=== PATIENT | male | born 1975 | race Caucasian/White ===

== ENCOUNTER 2017-01-26 19:05 | Emergency (ER) | payer OTHER ==
[2017-01-26] MEDS ORDERED: SODIUM CHLORIDE 0.9% 1,000 ML IV STA ×2 (20:34)
[2017-01-26] MEDS ORDERED: KETOROLAC 30 MG/ML 1 ML VIAL IVP STA (20:34)
[2017-01-26] MEDS ORDERED: ORPHENADRINE 30 MG/ML 2 ML VIAL IVP STA (20:36)
--- NOTE | 2017-01-26 20:40 | ED ---
Abdominal Pain HPI - General Source: patient, RN notes reviewed Mode of arrival: wheelchair Limitations: no limitations - History of Present Illness MD Complaint: abdominal pain, flank pain <Ryan Lawler - Last Filed: 01/26/17 20:36> <Ryan Leong - Last Filed: 01/26/17 22:34> - General Chief Complaint: Abdominal Pain Stated Complaint: anxiety Time Seen by Provider: 01/26/17 20:25 - History of Present Illness Initial Comments: This is a 42-year-old male with a history of a prior back injury about 20 years ago who states for the past 2 weeks is had intermittent episodes of left-sided flank pain it is now getting more severe is burning and sharp radiating around into his left flank and into his left lower quadrant abdominal area. He states it does increase somewhat with movement he thinks it is likely his low back he denies any urinary or fecal incontinence or loss of function to his lower extremities. He has tried home medications without relief. He denies any hematuria he has no history kidney stones. Denies any fevers chills sweats nausea vomiting states the pain is 11/10 severity. He states he injury occurred after lifting a box and twisting. He is concerned however because this is not typical of his low back pain with radiation. (Ryan Lawler) - Related Data Home Medications Medication Instructions Recorded Confirmed ALPRAZolam [Xanax] 1 mg PO QID PRN 01/26/17 01/26/17 Atorvastatin [Lipitor] 10 mg PO HS 01/26/17 01/26/17 Cholecalciferol [Vitamin D3] 5,000 unit PO DAILY 01/26/17 01/26/17 Desvenlafaxine Succinate [Pristiq] 50 mg PO DAILY 01/26/17 01/26/17 Gabapentin 1,200 mg PO TID 01/26/17 01/26/17 Ibuprofen [Motrin] 800 mg PO Q6H PRN 01/26/17 01/26/17 Lisinopril [Prinivil] 5 mg PO DAILY 01/26/17 01/26/17 Mirtazapine [Remeron] 15 mg PO HS 01/26/17 01/26/17 SUMAtriptan SUCCINATE [Imitrex] 50 mg PO BID PRN 01/26/17 01/26/17 Topiramate [Topamax] 25 mg PO DAILY 01/26/17 01/26/17 Previous Rx's Medication Instructions Recorded HYDROcodone/APAP 5-325MG [De Young 1 tab PO Q6HR PRN #12 tab 01/26/17 5-325] Ibuprofen [Motrin] 600 mg PO Q8HR PRN #24 tab 01/26/17 Allergies Allergy/AdvReac Type Severity Reaction Status Date / Time No Known Allergies Allergy Verified 01/26/17 20:41 Review of Systems ROS Other: All systems not noted in ROS Statement are negative. <Ryan Lawler - Last Filed: 01/26/17 20:36> ROS Other: All systems not noted in ROS Statement are negative. <Ryan Leong - Last Filed: 01/26/17 22:34> ROS Statement: Those systems with pertinent positive or pertinent negative responses have been documented in the HPI. Past Medical History Past Medical History: No Reported History History of Any Multi-Drug Resistant Organisms: None Reported Past Surgical History: No Surgical Hx Reported Past Psychological History: Anxiety Smoking Status: Current every day smoker Past Alcohol Use History: None Reported Past Drug Use History: None Reported <Ryan Lawler - Last Filed: 01/26/17 20:36> General Exam Limitations: no limitations General appearance: alert, anxious, in distress Head exam: Present: atraumatic, normocephalic, normal inspection Eye exam: Present: normal appearance, PERRL, EOMI. Absent: scleral icterus, conjunctival injection, periorbital swelling ENT exam: Present: normal exam, mucous membranes moist Neck exam: Present: normal inspection. Absent: tenderness, meningismus, lymphadenopathy Respiratory exam: Present: normal lung sounds bilaterally. Absent: respiratory distress, wheezes, rales, rhonchi, stridor Cardiovascular Exam: Present: regular rate, normal rhythm, normal heart sounds. Absent: systolic murmur, diastolic murmur, rubs, gallop, clicks GI/Abdominal exam: Present: soft, tenderness (Some left lower quadrant tenderness palpation no definite guarding or rebound. No masses no bruits no hernias), normal bowel sounds. Absent: distended, guarding, rebound, rigid Rectal exam: Present: deferred exam: Present: normal inspection Extremities exam: Present: normal inspection, full ROM, tenderness (Tenderness palpation over the left gluteus.), normal capillary refill. Absent: pedal edema , joint swelling, calf tenderness Back exam: Present: normal inspection, tenderness, paraspinal tenderness (Some mild paraspinous muscle tenderness at the lower thoracic and lumbar spine region no spinous process tenderness no step-off or crepitation). Absent: CVA tenderness (R), CVA tenderness (L), muscle spasm, rash noted Neurological exam: Present: alert, oriented X3, CN II-XII intact Psychiatric exam: Present: normal affect, normal mood Skin exam: Present: warm, dry, intact, normal color. Absent: rash <Ryan Lawler - Last Filed: 01/26/17 20:36> <Ryan Leong - Last Filed: 01/26/17 22:34> - General Exam Comments Initial Comments: This is a well-developed well-nourished awake alert oriented 3 male (Ryan Lawler) Course <Ryan Lawler - Last Filed: 01/26/17 20:36> <Ryan Leong - Last Filed: 01/26/17 22:34> Vital Signs 01/26/17 01/26/17 01/26/17 19:22 21:01 22:25 Temperature 99 F 98.9 F 97.7 F Pulse Rate 87 81 68 Respiratory 20 18 18 Rate Blood Pressure 135/84 127/76 112/74 O2 Sat by Pulse 98 97 97 Oximetry - Reevaluation(s) Reevaluation #1: 01/26/17 20:39 Patient will be endorsed to Dr. Leong who will make the final disposition. ( Ryan Lawler) Medical Decision Making <Ryan Lawler - Last Filed: 01/26/17 20:36> - Lab Data Result diagrams: 01/26/17 20:50 01/26/17 20:50 <Ryan Leong - Last Filed: 01/26/17 22:34> - Medical Decision Making Patient was signed out awaiting laboratory studies and CT of the abdomen and pelvis. Laboratory studies are unremarkable. CT shows no kidney stones, bony structures are intact. Patient denies weakness, reflexes are 2+ at the patella. He denies any bowel or bladder incontinence. His pain is primarily left lumbar paraspinal. No midline tenderness. No alarming features on history or physical exam. Patient is given Norflex, Toradol, and morphine. He is feeling somewhat better. He is able to emergency department. He will follow -up with his primary care physician. Diagnosis: acute lumbar strain (Ryan Leong) - Lab Data Lab Results 01/26/17 01/26/17 01/26/17 Range/Units 20:50 20:50 20:50 WBC 6.0 (3.8-10.6) k/uL RBC 4.44 (4.30-5.90) m/uL Hgb 14.7 (13.0-17.5) gm/dL Hct 44.5 (39.0-53.0) % MCV 100.3 H (80.0-100.0) fL MCH 33.1 (25.0-35.0) pg MCHC 33.0 (31.0-37.0) g/dL RDW 12.4 (11.5-15.5) % Plt Count 184 (150-450) k/uL Neutrophils % 48 % Lymphocytes % 36 % Monocytes % 8 % Eosinophils % 3 % Basophils % 1 % Neutrophils # 2.9 (1.3-7.7) k/uL Lymphocytes # 2.2 (1.0-4.8) k/uL Monocytes # 0.5 (0-1.0) k/uL Eosinophils # 0.2 (0-0.7) k/uL Basophils # 0.1 (0-0.2) k/uL Sodium 144 (137-145) mmol/L Potassium 3.8 (3.5-5.1) mmol/L Chloride 116 H (98-107) mmol/L Carbon Dioxide 18 L (22-30) mmol/L Anion Gap 10 mmol/L BUN 11 (9-20) mg/dL Creatinine 1.04 (0.66-1.25) mg/dL Est GFR (MDRD) Af Amer >60 (>60 ml/min/1.73 sqM) Est GFR (MDRD) Non-Af >60 (>60 ml/min/1.73 sqM) Glucose 71 L (74-99) mg/dL Calcium 8.6 (8.4-10.2) mg/dL Magnesium 1.9 (1.6-2.3) mg/dL Total Bilirubin 0.3 (0.2-1.3) mg/dL AST 23 (17-59) U/L ALT 43 (21-72) U/L Alkaline Phosphatase 78 (38-126) U/L Total Protein 6.2 L (6.3-8.2) g/dL Albumin 3.8 (3.5-5.0) g/dL Amylase <30 L (30-110) U/L Lipase 38 (23-300) U/L Urine Color Light Yellow Urine Appearance Clear (Clear) Urine pH 6.0 (5.0-8.0) Ur Specific Wrights 1.008 (1.001-1.035) Urine Protein Negative (Negative) Urine Glucose (UA) Negative (Negative) Urine Ketones Negative (Negative) Urine Blood Negative (Negative) Urine Nitrite Negative (Negative) Urine Bilirubin Negative (Negative) Urine Urobilinogen <2.0 (<2.0) mg/dL Ur Leukocyte Esterase Negative (Negative) Disposition <Ryan Lawler - Last Filed: 01/26/17 20:36> <Ryan Leong - Last Filed: 01/26/17 22:34> Clinical Impression: Abdominal pain, Lumbar back sprain Disposition: HOME SELF-CARE Condition: Good Instructions: Low Back Strain (ED) Prescriptions: HYDROcodone/APAP 5-325MG [De Young 5-325] 1 tab PO Q6HR PRN #12 tab PRN Reason: Pain Ibuprofen [Motrin] 600 mg PO Q8HR PRN #24 tab PRN Reason: Pain Referrals: Nonstaff,Physician [Primary Care Provider] - 1-2 days
[2017-01-26 21:07] LABS: Basophils # (A) 0.1 k/uL (0-0.2); Basophils % (A) 1 %; CH 33.2; CHCM 33.2; Eosinophils # (A) 0.2 k/uL (0-0.7); Eosinophils % (A) 3 %; HCT 44.5 % (39.0-53.0); HDW 2.35; HGB 14.7 gm/dL (13.0-17.5); Luc # (Auto) 0.24; Luc % (Auto) 4; Lymphocytes # (A) 2.2 k/uL (1.0-4.8); Lymphocytes % (A) 36 %; MCH 33.1 pg (25.0-35.0); MCV 100.3 fL (80.0-100.0); Mean Platelet Volume 8.4; Monocytes # (A) 0.5 k/uL (0-1.0); Monocytes % (A) 8 %; Neutrophils # (A) 2.9 k/uL (1.3-7.7); Neutrophils % (A) 48 %; RBC 4.44 m/uL (4.30-5.90); RDW 12.4 % (11.5-15.5); WBC (Perox) 6.21
[2017-01-26 21:09] LABS: Appearance,Urine Clear (Clear); Bilirubin,Urine Negative (Negative); Glucose,Urine (UA) Negative (Negative); Ketones,Urine Negative (Negative); Leukocyte Esterase,Urine Negative (Negative); Nitrite,Urine Negative (Negative); Protein,Urine Negative (Negative); Specific Gravity,Urine 1.008 (1.001-1.035); UA Billing (MACRO vs. MICRO) CHEM; Urobilinogen,Urine <2.0 mg/dL (<2.0)
[2017-01-26 21:11] VITALS: RESP 18
[2017-01-26 21:30] LABS: ALT 43 U/L (21-72); AST 23 U/L (17-59); Alkaline Phosphatase 78 U/L (38-126); Amylase <30 U/L (30-110); Anion Gap 10 mmol/L; Blood Urea Nitrogen 11 mg/dL (9-20); Calcium 8.6 mg/dL (8.4-10.2); Carbon Dioxide 18 mmol/L (22-30); Chloride 116 mmol/L (98-107); Glucose 71 mg/dL (74-99); Magnesium 1.9 mg/dL (1.6-2.3); Non-African American GFR(MDRD) >60 (>60 ml/min/1.73 sqM); Potassium 3.8 mmol/L (3.5-5.1); Sodium 144 mmol/L (137-145); Total Bilirubin 0.3 mg/dL (0.2-1.3); Total Protein 6.2 g/dL (6.3-8.2)
--- NOTE | 2017-01-26 21:48 | CT ---
EXAMINATION TYPE: CT abdomen pelvis wo con DATE OF EXAM: 01/26/2017 COMPARISON: NONE HISTORY: Left sided flank and LLQ pain CT DLP: 321 mGycm Automated exposure control for dose reduction was used. TECHNIQUE: Helical acquisition of images was performed from the lung bases through the pelvis. FINDINGS: Lung bases are clear. There is no pleural effusion. Heart size is normal. Liver spleen pancreas gallbladder appear normal. Bile ducts are not dilated. There is no adrenal mass . Kidneys have normal size and contour. There is no hydronephrosis. Ureters are not dilated. There is no retroperitoneal adenopathy. There is no ascites. I see no intestinal wall thickening. There are n o dilated loops. Appendix appears normal. There is no sign of appendicitis. Bladder distends smoothly. There is no pel thea mass. The bony structures are intact. IMPRESSION: NEGATIVE CT SCAN OF THE ABDOMEN AND PELVIS. NO EVIDENCE OF RENAL STONE OR OBSTRUCTION. NORMAL APPENDI X.
[2017-01-26] MEDS ORDERED: MORPHINE SULFATE 4 MG/ML SYRINGE IVP STA (22:29)
[2017-01-26] MEDS ORDERED: DIAZEPAM 5 MG/ML 2 ML SYRINGE IVP STA (22:29)
[2017-01-26 22:52] VITALS: BP 135/85; PULSE 70; TEMP 98.8
== END 2017-01-26 22:52 | disposition home or self-care (01) ==
LOC: EC 19:05
DX: S33.5XXA Sprain of ligaments of lumbar spine, initial encounter (principal); R10.32 Left lower quadrant pain; F17.200 Nicotine dependence, unspecified, uncomplicated; Z79.899 Other long term (current) drug therapy; X50.0XXA Overexertion from strenuous movement or load, initial encounter
CPT/HCPCS: 99284; 96374; 96375 ×2; 96361 ×2; 36415; 80053; 82150; 83690; 83735; 85025; 81003; 74176; J2270; J2360; J1885

== ENCOUNTER 2017-03-18 23:18 | Emergency (ER) | payer OTHER ==
[2017-03-18 23:24] VITALS: BP 135/82; PULSE 94; RESP 16; TEMP 97.1
--- NOTE | 2017-03-19 00:02 | XR ---
EXAMINATION TYPE: XR wrist complete LT DATE OF EXAM: 03/18/2017 COMPARISON: NONE HISTORY: Wrist injury and pain TECHNIQUE: 4 views FINDINGS: There is evidence of old ununited ulnar styloid process fracture. There is some deformity o f the distal radius consistent with an old healed fracture. I see no acute fracture. Carpal bones are intact. IMPRESSION: No acute abnormality of the left wrist. Old healed fractures.
--- NOTE | 2017-03-19 00:08 | ED ---
General Adult HPI - General Chief complaint: Extremity Injury, Upper Stated complaint: Wrist Injury Time Seen by Provider: 03/18/17 23:28 Source: patient, RN notes reviewed Mode of arrival: ambulatory Limitations: no limitations - History of Present Illness Initial comments: 42-year-old male presents to the emergency department with a chief complaint of left wrist pain. He tripped and fell onto his left wrist pain and swelling so he thought that he should be seen. He has a history of fractured left wrist in the past. Patient states that he has range of motion of the fingers he does have pain in the wrist when he moves the hand. No pain to the elbow. It was a simple trip and fall. Patient has no other injuries at this time. He complains of left wrist pain. She denies any head injury.Patient denies any recent fever, chills, shortness of breath, chest pain, back pain, abdominal pain , nausea vomiting, numbness or tingling, dysuria or hematuria, constipation or diarrhea, headaches or visual changes, or any other current symptoms. - Related Data Home Medications Medication Instructions Recorded Confirmed ALPRAZolam [Xanax] 1 mg PO QID PRN 01/26/17 03/18/17 Atorvastatin [Lipitor] 10 mg PO HS 01/26/17 03/18/17 Cholecalciferol [Vitamin D3] 5,000 unit PO DAILY 01/26/17 03/18/17 Desvenlafaxine Succinate [Pristiq] 50 mg PO DAILY 01/26/17 03/18/17 Gabapentin 1,200 mg PO TID 01/26/17 03/18/17 Lisinopril [Prinivil] 5 mg PO HS 01/26/17 03/18/17 Mirtazapine [Remeron] 15 mg PO HS 01/26/17 03/18/17 SUMAtriptan SUCCINATE [Imitrex] 50 mg PO BID PRN 01/26/17 03/18/17 Topiramate [Topamax] 25 mg PO DAILY 01/26/17 03/18/17 Previous Rx's Medication Instructions Recorded Ibuprofen [Motrin] 600 mg PO Q8HR PRN #24 tab 01/26/17 Allergies Allergy/AdvReac Type Severity Reaction Status Date / Time No Known Allergies Allergy Verified 03/18/17 23:29 Review of Systems ROS Statement: Those systems with pertinent positive or pertinent negative responses have been documented in the HPI. ROS Other: All systems not noted in ROS Statement are negative. Past Medical History Past Medical History: No Reported History History of Any Multi-Drug Resistant Organisms: None Reported Past Surgical History: No Surgical Hx Reported Past Psychological History: Anxiety Smoking Status: Current every day smoker Past Alcohol Use History: None Reported Past Drug Use History: None Reported General Exam - General Exam Comments Initial Comments: General: The patient is awake and alert, in no distress, and does not appear acutely ill. Neck: The neck is supple, there is no tenderness. Cardiovascular: There is a regular rate and rhythm. No murmur, rub or gallop is appreciated. Respiratory: Lungs are clear to auscultation, respirations are non-labored, breath sounds are equal. No wheezes, stridor, rales, or rhonchi. Musculoskeletal: Sensation intact with 2+ pulses at the left flexion. Full range motion of left elbow. Patient does have full motion of left wrist with some pain. Noted swelling to the back of the left wrist. No tenderness at the left hand and no deformity or swelling. Neurological: CN II-XII intact, There are no obvious motor or sensory deficits. Coordination appears grossly intact. Speech is normal. Skin: Skin is warm and dry and no rashes or lesions are noted. Psychiatric: Normal mood and affect. Limitations: no limitations Course Vital Signs 03/18/17 23:20 Temperature 97.1 F L Pulse Rate 94 Respiratory 16 Rate Blood Pressure 135/82 O2 Sat by Pulse 99 Oximetry Procedures - Orthopedic Splinting/Casting Injury #1 Side: left Upper Extremity Injury Location: wrist Upper Extremity Immobilizer: Donald wrap Medical Decision Making - Medical Decision Making 42-year-old male presents for left wrist pain after fall. Some x-rays reviewed and negative. We discussed left wrist contusion and sprain. Discussed follow- up return parameters all questions. Patient stated he understood any significant plan. All questions have been answered. He'll be discharged. - Radiology Data Radiology results: report reviewed, image reviewed Disposition Clinical Impression: Contusion of left wrist, initial encounter, Left wrist sprain Disposition: HOME SELF-CARE Condition: Stable Instructions: Wrist Injury (ED) Additional Instructions: Please use medication as discussed. Please follow up with family doctor if symptoms have not improved over the next two days. Please return to the emergency room if your symptoms increase or worsen or for any other concerns. Rest the area. Ice the area 20 min on 20 min off 4x a day. Compress the area with either the DONALD bandage or wearing the splint. Elevate the area above the heart whenever possible. Referrals: Freddy Byrd MD [Primary Care Provider] - 1-2 days Time of Disposition: 00:08
== END 2017-03-19 00:20 | disposition home or self-care (01) ==
LOC: SUPCPDRO 23:18 → EC 23:18
DX: S63.502A Unspecified sprain of left wrist, initial encounter (principal); F41.9 Anxiety disorder, unspecified; F17.200 Nicotine dependence, unspecified, uncomplicated; Z79.899 Other long term (current) drug therapy; W01.0XXA Fall on same level from slipping, tripping and stumbling without subsequent striking against object, initial encounter
CPT/HCPCS: 99283

== ENCOUNTER 2017-03-20 14:31 | Emergency (ER) | payer OTHER ==
[2017-03-20 14:56] VITALS: BP 136/80; PULSE 92; RESP 20
--- NOTE | 2017-03-20 15:39 | ED ---
Upper Extremity HPI - General Chief Complaint: Extremity Injury, Upper Stated Complaint: wrist pain-revisit Time Seen by Provider: 03/20/17 15:05 Source: patient Mode of arrival: ambulatory Limitations: no limitations - History of Present Illness Initial Comments: 42-year-old male patient presents to the emergency department today for complaints of left hand swelling and pain. Patient was seen and evaluated here a couple of days ago for injury to the left wrist. He states that he tripped and fell causing his wrist to hyperextend. He states that he did have an x-ray which showed negative for any acute fractures. Patient was placed in an Donald wrap and discharged home. Patient states that over the last 24 hours the swelling in his hand has increased, and his pain has become worse. He states that the swelling in his wrist has improved. He says he has been taking ibuprofen for pain control which is not helping. He denies any numbness or tingling to the hand. He states he is able to move his fingers but with pain. Patient denies any headache, neck pain, back pain, chest pain, shortness of breath, dizziness, weakness, abdominal pain, nausea, vomiting, or difficulties with bowel movements or urination. - Related Data Home Medications Medication Instructions Recorded Confirmed ALPRAZolam [Xanax] 1 mg PO QID PRN 01/26/17 03/18/17 Atorvastatin [Lipitor] 10 mg PO HS 01/26/17 03/18/17 Cholecalciferol [Vitamin D3] 5,000 unit PO DAILY 01/26/17 03/18/17 Desvenlafaxine Succinate [Pristiq] 50 mg PO DAILY 01/26/17 03/18/17 Gabapentin 1,200 mg PO TID 01/26/17 03/18/17 Lisinopril [Prinivil] 5 mg PO HS 01/26/17 03/18/17 Mirtazapine [Remeron] 15 mg PO HS 01/26/17 03/18/17 SUMAtriptan SUCCINATE [Imitrex] 50 mg PO BID PRN 01/26/17 03/18/17 Topiramate [Topamax] 25 mg PO DAILY 01/26/17 03/18/17 Previous Rx's Medication Instructions Recorded Ibuprofen [Motrin] 600 mg PO Q8HR PRN #24 tab 01/26/17 Acetaminophen-Codeine 300-30mg 1 tab PO Q6H PRN #20 tablet 03/20/17 [Tylenol #3] Allergies Allergy/AdvReac Type Severity Reaction Status Date / Time No Known Allergies Allergy Verified 03/20/17 14:56 Review of Systems ROS Statement: Those systems with pertinent positive or pertinent negative responses have been documented in the HPI. ROS Other: All systems not noted in ROS Statement are negative. Past Medical History Past Medical History: No Reported History History of Any Multi-Drug Resistant Organisms: None Reported Past Surgical History: No Surgical Hx Reported Past Psychological History: Anxiety Smoking Status: Current every day smoker Past Alcohol Use History: None Reported Past Drug Use History: None Reported General Exam Limitations: no limitations General appearance: alert, in no apparent distress, other (This is a well- developed, well-nourished adult male patient in no acute distress. Vital signs upon presentation were temperature 98.3F, pulse 92, respirations 20, blood pressure 136/80, pulse ox 98% on room air.) Respiratory exam: Present: normal lung sounds bilaterally. Absent: respiratory distress, wheezes, rales, rhonchi, stridor Cardiovascular Exam: Present: regular rate, normal rhythm, normal heart sounds. Absent: systolic murmur, diastolic murmur, rubs, gallop, clicks Extremities exam: Present: tenderness (Tenderness over the dorsal aspect of the left hand and wrist. Tenderness over the ulnar aspect of the left wrist.), normal capillary refill, other (Patient has ecchymosis and swelling to the dorsal aspect of the left hand. Skin is otherwise pink, warm, and dry. Cap refill is less than 3 seconds. Radial pulses 2+ and equal bilaterally.). Absent: full ROM (Decreased range of motion to the left wrist due to increased pain with movement.), pedal edema, joint swelling, calf tenderness Neurological exam: Present: alert, oriented X3, CN II-XII intact Psychiatric exam: Present: normal affect, normal mood Skin exam: Present: warm, dry, intact, normal color. Absent: rash Course Vital Signs 03/20/17 03/20/17 14:54 15:44 Temperature 98.3 F 97.9 F Pulse Rate 92 Respiratory 20 Rate Blood Pressure 136/80 O2 Sat by Pulse 98 Oximetry Medical Decision Making - Medical Decision Making 42-year-old male patient presented to the emergency department today for evaluation of left hand and wrist swelling and pain. Physical exam did reveal soft tissue swelling and ecchymosis to the dorsal aspect of the left hand. Radial pulses were intact. Did review x-ray report and image from 03/18/2017 which shows no acute fractures. I did inform patient an X-ray would unlikely show any changes at this point. I did place patient in a volar OCL splint and instructed him to follow up with orthopedics on Wednesday. I instructed him to have a repeat x-ray performed in 5-8 days to evaluate for possible occult fracture. I did give him a prescription for stronger pain medication and instructed him to continue taking the ibuprofen at home. He is instructed to rest, ice, and elevate the extremity. He is instructed to return immediately for any new, worsening, or concerning symptoms. He verbalizes understanding and agrees with this plan. Disposition Clinical Impression: Wrist sprain, Left wrist sprain Disposition: HOME SELF-CARE Condition: Good Instructions: Wrist Injury (ED), Wrist Sprain (ED) Additional Instructions: Keep splint in place until follow-up with orthopedics. Keep extremity elevated , apply ice 20 minutes at a time release 4 times daily. Take medication as directed. Take this medication in conjunction with ibuprofen for symptom relief. Return immediately for any new, worsening, or concerning symptoms. Prescriptions: Acetaminophen-Codeine 300-30mg [Tylenol #3] 1 tab PO Q6H PRN #20 tablet PRN Reason: Pain Referrals: Freddy Byrd MD [Primary Care Provider] - 1-2 days Colin Fernandez MD [STAFF PHYSICIAN] - 1-2 days Time of Disposition: 15:39
[2017-03-20 15:45] VITALS: TEMP 97.9
== END 2017-03-20 15:45 | disposition home or self-care (01) ==
LOC: EC 14:31
DX: S63.502D Unspecified sprain of left wrist, subsequent encounter (principal); F17.200 Nicotine dependence, unspecified, uncomplicated; Z79.899 Other long term (current) drug therapy; W01.0XXD Fall on same level from slipping, tripping and stumbling without subsequent striking against object, subsequent encounter
CPT/HCPCS: 29125; 99283

== ENCOUNTER → 2017-11-04 | Outpatient (CLI) | payer OTHER ==
--- NOTE | 2017-11-04 15:53 | US ---
EXAMINATION TYPE: US kidneys/renal and bladder DATE OF EXAM: 11/04/2017 COMPARISON: CT 01/26/2017 CLINICAL HISTORY: 42-year-old male CKD, N18.2. Pt states recent abnormal labs TECHNIQUE: Multiple sonographic images of the kidneys and bladder are obtained. FINDINGS: Right Kidney: 10.7 x 4.2 x 5.3 cm without hydronephrosis. Left Kidney: 11.3 x 5.5 x 5.7 cm without hydronephrosis. Urine distended bladder shows no gross abnormality.Bilateral Jets seen: No IMPRESSION: No hydronephrosis.
== END | disposition home or self-care (01) ==
LOC: RADUSWWP 15:28
PROVIDERS: ATTEND Internal Medicine Nephrology
DX: N18.2 Chronic kidney disease, stage 2 (mild) (principal)
CPT/HCPCS: 76770